=== PATIENT | male | born 1990 | race Asian ===

== ENCOUNTER 2022-05-18 13:42 | Emergency (ER) | payer SELFPAY ==
[2022-05-18 14:10] VITALS: BP 105/74; PULSE 81; RESP 18; TEMP 99.2; BMI 25.6
[2022-05-18] MEDS ORDERED: DIPHTH,PERTUSS(ACELL),TET 0.5 ML DISP.SYRIN IM ONE ×2 (15:19→15:23)
[2022-05-18] MEDS ORDERED: ACETAMINOPHEN 500 MG TABLET (FP) PO ONE (15:19)
[2022-05-18] MEDS ORDERED: ACETAMINOPHEN 325 MG TABLET (FP) ONE (15:23)
== END 2022-05-18 17:41 | disposition home or self-care (01) ==
LOC: JERFT 13:42
PROC: 0HQ0XZZ Repair Scalp Skin, External Approach (ICD-10-PCS; principal; 2022-05-18)
PROC: 3E0234Z Introduction of Serum, Toxoid and Vaccine into Muscle, Percutaneous Approach (ICD-10-PCS; 2022-05-18)
DX: S01.01XA Laceration without foreign body of scalp, initial encounter (principal); W10.8XXA Fall (on) (from) other stairs and steps, initial encounter
CPT/HCPCS: 70450-TC; 72125-TC; 90715; 99284-25

== ENCOUNTER 2022-05-26 21:28 | Emergency (ER) | payer SELFPAY ==
[2022-05-26 21:32] VITALS: BP 129/81; PULSE 84; RESP 18; TEMP 97.8; BMI 25.6
== END 2022-05-26 22:46 | disposition home or self-care (01) ==
LOC: JERFT 21:28
DX: S01.01XA Laceration without foreign body of scalp, initial encounter (principal); Y99.9 Unspecified external cause status; Z48.02 Encounter for removal of sutures
CPT/HCPCS: 99281-25

== ENCOUNTER 2022-09-07 01:03 | Emergency (ER) | payer OTHER ==
[2022-09-07 01:32] VITALS: BP 129/85; PULSE 91; RESP 18; TEMP 98; BMI 25.6
== END 2022-09-07 05:52 | disposition home or self-care (01) ==
LOC: JER 01:03
DX: F10.129 Alcohol abuse with intoxication, unspecified (principal)
CPT/HCPCS: 99281-25